=== PATIENT | female | born 1960 | race American Indian/Alaskan Native ===

== ENCOUNTER 2017-01-15 09:31 | Emergency (ER) | payer MEDICAID ==
[2017-01-15] MEDS ORDERED: Sodium Chloride 0.9% 10 ML Syringe FLUSH PRN (09:55)
[2017-01-15 10:00] VITALS: BP 114/82
[2017-01-15 10:27] LABS: CHLORIDE,CL 104 mmol/L (101-111); SODIUM,NA 134 mmol/L (135-145)
[2017-01-15] MEDS ORDERED: Ondansetron 4 MG/2 ML SDV IV ONE (10:29)
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
[2017-01-15] MEDS ORDERED: HYDROmorphone 1 MG/ML Syringe IVPUSH ONE (10:43)
--- NOTE | 2017-01-15 12:54 | US ---
Clinical history: 56-year-old female with right upper quadrant pain. Interpretation: Gallbladder and limited epigastric sonogram.....abnormal. Multiple mobile dependent intraluminal echogenic "shadowing" gallstones septated gallbladder identifi ed RUQ. No abnormal dilatation of the intra/extrahepatic biliary ducts (common hepatic duct 2.3 mm and the co mmon bile duct is 0.5 mm diameter). Fractional visualization pancreas (gas). No ascites. CONCLUSION: Cholelithiasis.
== END 2017-01-15 11:52 | disposition home or self-care (01) ==
LOC: DL.ED 09:31
DX: K80.20 Calculus of gallbladder without cholecystitis without obstruction (principal); Z88.0 Allergy status to penicillin; Z88.2 Allergy status to sulfonamides; F17.210 Nicotine dependence, cigarettes, uncomplicated
CPT/HCPCS: 36415; 76705; 80053; 82150; 83690; 85025; 96374; 96375; 99284; J1170; J2405; J7050

== ENCOUNTER 2018-05-25 04:17 | Emergency (ER) | payer MEDICAID, OTHER ==
[2018-05-25] MEDS ORDERED: Acetaminophen/HYDROcodone 325-10 MG Tab PO ONE (04:26)
[2018-05-25 04:28] VITALS: BP 122/74
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
== END 2018-05-25 04:34 | disposition home or self-care (01) ==
LOC: DL.ED 04:17
DX: M19.011 Primary osteoarthritis, right shoulder (principal); M19.012 Primary osteoarthritis, left shoulder; Z88.0 Allergy status to penicillin; Z88.2 Allergy status to sulfonamides; Z79.899 Other long term (current) drug therapy
CPT/HCPCS: 99283; A9270

== ENCOUNTER 2018-12-03 17:36 | Emergency (ER) | payer MEDICAID ==
[2018-12-03 17:50] VITALS: BP 123/50; PULSE 94
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
[2018-12-03 18:22] LABS: ANION GAP 11.6; CHLORIDE,CL 110 mmol/L (101-111); SODIUM,NA 138 mmol/L (135-145)
[2018-12-03] MEDS: Sodium Chloride 0.9% 1,000 ML IV ONE ×2 (18:38→20:46)
[2018-12-03] MEDS: Sodium Chloride 0.9% 10 ML Syringe FLUSH PRN (18:38)
[2018-12-03] MEDS: Ondansetron 4 MG/2 ML SDV IV ONE (18:38)
[2018-12-03] MEDS: fentaNYL 100 MCG/2 ML SDV IVPUSH ONE (19:21)
[2018-12-03] MEDS: Metoclopramide 10 MG/2 ML SDV IVPUSH ONE (19:21)
== END 2018-12-03 21:16 ==
LOC: DL.ED 17:36
DX: A41.9 Sepsis, unspecified organism (principal); I95.9 Hypotension, unspecified; C34.90 Malignant neoplasm of unspecified part of unspecified bronchus or lung; C79.89 Secondary malignant neoplasm of other specified sites; C79.51 Secondary malignant neoplasm of bone; C79.31 Secondary malignant neoplasm of brain; F17.210 Nicotine dependence, cigarettes, uncomplicated; Z88.0 Allergy status to penicillin; Z88.2 Allergy status to sulfonamides; Z90.49 Acquired absence of other specified parts of digestive tract; Z79.899 Other long term (current) drug therapy
CPT/HCPCS: 36415; 71045; 80053; 83605; 84484; 85025; 87040; 96361; 96365; 96375; 99285; J2405; J2765; J3010; J3370; J7030; J7050

== ENCOUNTER 2019-09-30 11:30 | Emergency (ER) | payer MEDICAID, OTHER ==
[2019-09-30 11:38] VITALS: BP 129/66; PULSE 47
--- NOTE | 2019-09-30 12:38 | CR ---
EXAMINATION: Chest 2V SEX: Female AGE: 59 years CLINICAL HISTORY: 59-year-old female with metastatic lung cancer complaining of headache and "chest pressure". Comparison CXR 06 December 2018 and 20 January 2018. Interpretation: No new parenchymal lung nodule or mass lesion (right supra clavicular central venous chemotherapy infusion line). Normal cardiac silhouette. No pulmonary vascular congestion, cephalization of flow, alveolar edema or dependent pleural effusion. No lobar, atelectasis or collapse. No pneumothorax or pneumomediastinum. Midline tracheal bronchial airway unremarkable. CONCLUSION: No sign of recurrent primary (right upper lobe) or metastatic malignancy. No infiltrates.
--- NOTE | 2019-09-30 12:55 | CT ---
EXAMINATION: Max Facial Sinus wo Cont SEX: Female AGE: 59 years CLINICAL HISTORY: 59-year-old female with known RUL primary lung malignancy, metastatic who presents now with FOREHEAD PRESSURE. No trauma. Scan technique: Volume acquisition of data emergency unenhanced CT scan of the facial bones/sinuses obtained with the patient lying supine on the Siemens multi slice scanner [place], [place]. All data archived in the PACS system for storage, reformatting axial/sagittal/coronal planes and study (bone/soft tissue windows). Interpretation: Abnormal. 1. Lobulated, pedunculated, soft tissue mass with punctate calcifications that is located within the left frontal sinus (measures 13 mm greatest diameter). No bony wall erosion/destruction. 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 2. Symmetric clear pneumatization of the paranasal sinuses without sign of other antral mass lesion, mucoperiosteal inflammatory thickening, or pathologic air-fluid level. 3. Midline nasal septum. Symmetric normal nasal turbinates. No foreign bodies. 4. Symmetric normal-appearing optic globes. No sign of intraorbital retrobulbar mass. 5. Symmetric clear pneumatization of the mastoid sinuses. No inflammatory changes or tumor. 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 Otherwise negative exam.
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
--- NOTE | 2019-09-30 13:07 | CT ---
EXAMINATION: Head wo Cont SEX: Female AGE: 59 years CLINICAL HISTORY: 59-year-old female with known primary (right upper lobe) lung malignancy, metastatic, who is experiencing forehead and chest "pressure". Probable osteoid osteoma left frontal sinus. No trauma. Scan technique: Volume acquisition of data emergency unenhanced CT scan of the head and brain obtained with the patient lying supine on the Siemens multislice scanner [place], [place]. All data archived PACS system for storage, reformatting and study (bone/brain windows). Interpretation: ABNORMAL. (NO COMPARISON CT OR MRI EXAMS OF THE HEAD) 1. UNIFORMLY THICK BONY CALVARIUM. 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 2. Large area of edema involving most of the occipital lobe, posteriorly, right cerebral hemisphere. Associated mass effect on the surrounding cerebral sulci with shift of the midline structures away to the left. 3. A second large area of decreased attenuation (infarct or tumor/edema) occupying the left cerebellum. Some associated compromise of the fourth ventricle, posterior fossa. 4. No sign of skull fracture, underlying brain contusion or epidural/subdural hematoma. 5. No current evidence of acute intracerebral, intraventricular or subarachnoid bleed. 6. Brainstem unremarkable. CONCLUSION: Metastatic brain disease (right occipital lobe and cerebellum on the left). Increased ICP (intracranial pressure). No hydrocephalus or signs of acute intracranial bleed. Note: Patient's imaging findings discussed with emergency department provider.
== END 2019-09-30 12:47 | disposition left against medical advice (07) ==
LOC: DL.ED 11:30
DX: G93.6 Cerebral edema (principal); J44.9 Chronic obstructive pulmonary disease, unspecified; F17.210 Nicotine dependence, cigarettes, uncomplicated; Z88.0 Allergy status to penicillin; Z88.2 Allergy status to sulfonamides; Z88.6 Allergy status to analgesic agent
CPT/HCPCS: 70450; 70486; 71046; 99283; 99284-25

== ENCOUNTER 2019-10-06 14:55 | Emergency (ER) | payer MEDICAID ==
[2019-10-06 15:05] VITALS: BP 115/74; PULSE 70
[2019-10-06] MEDS ORDERED: Morphine 2 MG/ML SYRINGE IVPUSH ONE (15:30)
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
[2019-10-06 16:11] LABS: ANION GAP 12.9 mEq/L (7-13); CHLORIDE,CL 105 mmol/L (98-107); SODIUM,NA 140 mmol/L (136-145)
== END 2019-10-06 16:23 | disposition home or self-care (01) ==
LOC: DL.ED 14:55
DX: G44.89 Other headache syndrome (principal); C71.9 Malignant neoplasm of brain, unspecified; F17.210 Nicotine dependence, cigarettes, uncomplicated; J44.9 Chronic obstructive pulmonary disease, unspecified; Z88.0 Allergy status to penicillin; Z88.2 Allergy status to sulfonamides; Z88.5 Allergy status to narcotic agent
CPT/HCPCS: 36415; 80053; 84484; 85025; 93005; 96374; 99285; J2270; 99283